=== PATIENT | female | born 1985 | race Caucasian/White ===

== ENCOUNTER 2021-07-01 15:28 | Emergency (ER) | payer OTHER, MEDICAID, SELFPAY ==
[2021-07-01] VITALS (9 sets, daily range): BP systolic 104–156; BP diastolic 68–96; PULSE 79–97; RESP 2–28; TEMP 36.6; O2SAT 97–100; BMI 38.6
--- NOTE | 2021-07-01 15:57 | EDS_ITS ---
HPI History of Present Illness Chief Complaint: Upper Extremity Injury Informant: patient Occured/Mechanism Mechanism/Context: Yes injury and Yes blunt trauma Onset/Context/Timing Onset: Today Context: Sudden Onset Timing: Continuous Quality of Pain: Sharp Current Severity: Moderate Maximum Severity: Severe Associated Symptoms Associated Symptoms: Negative for Parasthesia and Weakness Narrative Narrative: 35-year-old female left hand dominant was doing routine work when she fell injuring her right upper extremity. Denies any red no LOC. No other complaints. Complaining of pain primarily in the right humerus and shoulder region. She has a history of [id number] diabetes is currently on no medications. She denies any prior surgery to her right upper extremity. Prior similar symptoms: No Recent Illness/Hospitalization: No PFSH PFSH Medical History Diabetes Home Medications hydrocodone-acetaminophen 1 tab PO Q4H PRN 3 Days #10 tab 07/01/21 [Rx Last Taken Unknown] Allergy/AdvReac Type Severity Reaction Status Date / Time No Known Allergies Allergy Verified 07/01/21 15:33 Surgical History Previous section Social History Smoking Status: Current every day smoker tobacco type: cigarettes ROS ROS ED ROS Narrative Denies recent illness. Review of Systems ROS Unobtainable: Denies due to encephalopathy Constitutional Constitutional ED: Denies chills or frequent falls Eyes Eyes: Denies change in vision ENT ENT ED: Denies ear pain or sore throat Cardiovascular Cardiovascular: Denies chest pain Respiratory/Chest Respiratory/Chest: Denies cough or dyspnea Gastrointestinal Gastrointestinal: Denies abdominal pain, diarrhea, nausea or vomiting Genitourinary Genitourinary ED: Denies dysuria or hematuria Musculoskeletal Musculoskeletal: Denies myalgias Integumentary Denies rash Neurologic Neurologic: Denies headache(s) Psychiatric Psychiatric: Denies depression Endocrine Endocrinology: Denies polyuria Hematologic/Lymphatic Hematologic/Lymphatic: Denies easy bruising Allergic/Immunologic Allergic/Immunologic ED: Denies urticaria EXAM Physical Exam Narrative Exam Narrative: 35-year-old female complaining of pain right upper extremity. Vital signs stable afebrile. Tenderness to her right proximal humerus region. Elbow forearm wrist and hand on the right are unremarkable nontender. No defor mity. Normal radial pulse. 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 Left upper extremity unremarkable. Lungs are clear. Chest wall nontender. Heart regular rhythm. Abdomen soft nontender. Pelvic girdle intact. Moving both lower extremities nontender. Back nontender. HEENT exam unremarkable atraumatic. Neurologically she is awake alert with no focal motor deficits. Const Vital Signs: 07/01/21 15:29 Temperature 97.8 F Temperature Source Oral Pulse Rate 91 Respiratory Rate 24 H Blood Pressure 156/96 H Blood Pressure Mean 116 Pulse Ox 97 Oxygen Delivery Method Room Air Positive well nourished General Appearance ED: NAD HEENT Reports moist mucous membranes normocephalic and atraumatic; Negative for trauma or tenderness Eyes PERRL and EOMs intact bilaterally Neck supple General: Negative for tenderness Chest Wall inspection of chest normal and palpation of chest normal Resp normal respiratory effort and clear to auscultation bilaterally Auscultation: Negative for rales, rhonchi or wheezes Cardio regular rate, regular rhythm, S1 normal heart sound, S2 normal heart sound and no murmurs GI non-tender, non-distended and no masses Auscultation: normoactive bowel sounds Palpation: soft; Negative for tender, guarding or rebound tenderness present Back/Spine no CVA tenderness Cervical Spine: Negative for cervical spine tenderness Thoracic Spine / Upper Back: Negative for thoracic spinal tenderness Lumbar Spine / Lower Back: Negative for lumbar spinal tenderness Extremity Extremity Narrative: Left upper extremity unremarkable nontender. Right upper extremity tender to shoulder and proximal humerus. Right hand is neurovascularly intact with strong radial pulse and environmental studies program director strength. Normal sensation. Neuro oriented x3 and moves all extremities Sensorium / Orientation: alert, oriented to person, oriented to place and oriented to time; Negative for orientation impaired, lethargic or stuporous Motor Exam: strength 5/5 throughout Psych mental status grossly normal Attitude: No agitated Mood & Affect: Negative for depressed, anxious or tearful Skin Lesions: no lesions Rashes: no rashes Trauma: no lacerations or abrasions; Negative for abrasion or laceration MDM MDM MDM Narrative Medical decision making narrative: 35-year-old female work-related injury to the right upper extremity. She will be treated with morphine IV. She is already been given morphine and Zofran by squad. Awaiting x-rays. Radiography Diagnostic Testing: Chest x-ray is unremarkable except for a dislocated right shoulder. There are no obvious rib fractures. 1 view interpreted by myself. Humerus x-rays show a dislocated right humerus. No fracture noted. 2 views interpreted by myself. Shoulder x-ray 2 views interpreted by myself shows a inferior shoulder dislocation. Procedures Other Procedures Procedure(s): Dislocated right shoulder manual reduction. Patient sedated with IV propofol. Using traction countertraction it was manually reduced. Patient was placed in a sling and postreduction x-rays will be obtained. After the first reduction attempt it appeared on the x-ray it was still partially subluxed even though the patient clinically was much better. She was then given 80 mg of propofol again mainly reduced the second postreduction film looked improved she be placed in a sling. Observe for the conscious sedation to wear off and be discharged home with outpatient follow-up. Discharge Plan Triage Chief Complaint: Upper Extremity Injury ED Provider: Norman Sena Dx/Rx/DC Orders Clinical Impression: Fall, Dislocation of shoulder, right, closed Instructions: ED Dislocation: Shoulder (Reduced) Prescriptions: New hydrocodone-acetaminophen 5-325 mg tablet 1 tab PO Q4H PRN (Reason: pain) 3 Days Qty: 10 RF: 0 Primary Care Provider: Care Physician,No Primary Referrals: Armando Wilburn DO [STAFF PHYSICIAN] - As soon as possible Care Physician,No Primary [Primary Care Provider] - Activity Restrictions/Additional Instructions: Ice to the shoulder. Sling on except when bathing or sleeping. Call and follow-up with the orthopedic doctor Armando Wilburn for further evaluation. Tylenol and Motrin for pain. Off work or light duty until July 05. No lifting with this arm until seen and cleared by orthopedics. Disposition Disposition: Home, Self Care
[2021-07-01] MEDS: morphine 8 MG/ML Syringe IV (16:14)
--- NOTE | 2021-07-01 16:33 | RAD_ITS ---
STUDY: X-RAY - RIGHT SHOULDER REASON FOR EXAM: Female, 35 years old. Injury TECHNIQUE: 2 view(s) of the shoulder. COMPARISON: None. FINDINGS: There is anterior and inferior dislocation of the right humeral head relative to the glenoid. There is no fracture identified. There are no radiodense foreign bodies. RAD/Shoulder min 2 Views IMPRESSION: Anterior and inferior dislocation of the right humeral head relative to the glenoid. No fracture identified. Electronically Signed: Heber Grant MD at 16:48 EDT Tel , Service support ,
--- NOTE | 2021-07-01 16:34 | RAD_ITS ---
STUDY: X-RAY - RIGHT HUMERUS REASON FOR EXAM: Female, 35 years old. Injury TECHNIQUE: 2 view(s) of the humerus. COMPARISON: None. FINDINGS: There is anterior and inferior dislocation of the right humeral head relative to the glenoid. There is no fracture identified. There are no radiodense foreign bodies. RAD/Humerus min 2 Views IMPRESSION: Anterior and inferior dislocation of the right humeral head relative to the glenoid. No fracture identified. Electronically Signed: Heber Grant MD at 16:49 EDT Tel , Service support ,
--- NOTE | 2021-07-01 16:37 | RAD_ITS ---
STUDY: X-RAY CHEST REASON FOR EXAM: Female, 35 years old. Injury TECHNIQUE: Frontal view of the chest COMPARISON: None. FINDINGS: The lungs are clear. There are no pleural effusions. There is no pneumothorax. The heart is normal in size. There is anterior and inferior dislocation of the right shoulder. RAD/Chest 1 View (Portable) IMPRESSION: Clear lungs. No pneumothorax. Anterior and inferior dislocation of the right shoulder. Electronically Signed: Heber Grant MD at 16:44 EDT Tel , Service support ,
[2021-07-01] MEDS: Propofol 200 MG/20 ML Vial 130 MG IV BOLUS (17:13)
--- NOTE | 2021-07-01 17:25 | RAD_ITS ---
STUDY: X-RAY - RIGHT SHOULDER REASON FOR EXAM: Female, 35 years old. post reduction TECHNIQUE: 2 view(s) of the shoulder. COMPARISON: 07/01/2021 4:33 PM FINDINGS: Films status post reduction of right shoulder dislocation demonstrates persistent mild inferior subluxation of the humeral head possibly due to capsular laxity. There is questionable tiny cortical fracture of the inferior glenoid rim. CT would be helpful for further evaluation RAD/Shoulder min 2 Views IMPRESSION: Persistent mild inferior subluxation of the humeral head. Possible tiny cortical fracture of the inferior glenoid rim which may be better assessed with CAT scan if clinically Electronically Signed: Mj Smith MD at 17:57 EDT , Service support ,
--- NOTE | 2021-07-01 17:41 | RAD_ITS ---
STUDY: X-RAY - RIGHT SHOULDER REASON FOR EXAM: Female, 35 years old. post reduction TECHNIQUE: 2 view(s) of the shoulder. COMPARISON: 07/01/2021 5:20 PM FINDINGS: Status post reduction of right shoulder dislocation with spiritism of joint to normal anatomic configuration however, there is cortical irregularity of the greater tuberosity suggesting cortical avulsion.. RAD/Shoulder min 2 Views IMPRESSION: Status post reduction of right shoulder dislocation. Question tiny cortical avulsion fracture of the greater tuberosity. Electronically Signed: Mj Smith MD at 18:49 EDT , Service support ,
[2021-07-01] MEDS: Propofol 200 MG/20 ML Vial 80 MG IV BOLUS (17:47)
--- NOTE | 2021-07-01 17:53 | ED.RN ---
AFTER INITIAL PROCEDURE, PT SHOULDER NOT IN PLACE PER DR. MEZA. PROCEDURE REINITIATED AND PT REMEDICATED PER DR. GARCIA AND PRCEDURE REINITIATED, SEE MODERATE SEDATION DOC. PT TOLERATED WELL. PT ALDRETTE COMPLETE, PT A+OX4. 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 CORPORATE CARE CONTACTED.
== END 2021-07-01 18:56 | disposition home or self-care (01) ==
PROVIDERS: Emergency Provider Emergency Medicine
DX: S43.034A Inferior dislocation of right humerus, initial encounter (principal); W19.XXXA Unspecified fall, initial encounter; Y93.9 Activity, unspecified; Y92.89 Other specified places as the place of occurrence of the external cause; Y99.9 Unspecified external cause status; E11.9 Type 2 diabetes mellitus without complications; F17.210 Nicotine dependence, cigarettes, uncomplicated; Z79.84 Long term (current) use of oral hypoglycemic drugs
CPT/HCPCS: 23650; 71045; 73030; 73060; 96374; 99285